=== PATIENT | male | born 1995 | race Caucasian/White ===

== ENCOUNTER 2024-08-16 15:23 | Emergency (ER) | payer OTHER, BC ==
[~2024-08-16] VITALS: Ht 175.3 cm; Wt 80.0 kg
[2024-08-16 15:30] VITALS: O2SAT 100
[2024-08-16] MEDS: KETOROLAC 30MG/ML VIAL IM ONE (15:46)
[2024-08-16] MEDS: ACETAMINOPHEN 325MG TABLET PO ONE (15:46)
[2024-08-16] MEDS ORDERED: IBUP-2029 MT (18:09)
[2024-08-16 18:15] VITALS: BP 121/70; PULSE 72; RESP 16; TEMP 36.8; O2SAT 100
== END 2024-08-16 18:17 | disposition home or self-care (01) ==
LOC: ER 15:23
DX: S59.811A Other specified injuries right forearm, initial encounter (principal); M79.631 Pain in right forearm; X58.XXXA Exposure to other specified factors, initial encounter; Y93.89 Activity, other specified; Y92.89 Other specified places as the place of occurrence of the external cause; Y99.8 Other external cause status
CPT/HCPCS: 99283; 73090; 29125; 96372; J1885; A6449; A4565; A4606